=== PATIENT | female | born 1980 | race African-American/Black ===

== ENCOUNTER 2021-12-12 09:18 | Emergency (ER) | payer OTHER | END 2021-12-12 11:00 | disposition home or self-care (01) | LOC: CSHERS 09:18 | DX: S92.341A Displaced fracture of fourth metatarsal bone, right foot, initial encounter for closed fracture (principal); W20.8XXA Other cause of strike by thrown, projected or falling object, initial encounter ==

== ENCOUNTER 2021-12-23 08:21 | Emergency (ER) | payer OTHER ==
[2021-12-23] MEDS ORDERED: Ketorolac Tromethamine 30 MG/ML VIAL ONE (08:42)
== END 2021-12-23 09:07 | disposition home or self-care (01) ==
LOC: CSHERS 08:21
DX: R07.89 Other chest pain (principal); D50.9 Iron deficiency anemia, unspecified
CPT/HCPCS: 96372; 99283; J1885

== ENCOUNTER 2022-09-24 10:21 | Emergency (ER) | payer OTHER ==
[2022-09-24 11:22] LABS: Hemoglobin 9.1 g/dL (12.0-15.5); Mean Corpuscular HGB CONC 31.3 g/dL (32.0-36.0); Mean Corpuscular Hemoglobin 26.1 pg (27.0-33.0); Mean Corpuscular Volume 83.4 fl (81.6-98.3); Mean Platelet Volume 9.6 fl (7.4-10.4); Platelet Count 181 10x3/uL (150-450); RBC Distribution Width 18.5 % (11.5-14.5); Red Blood Cell (RBC) Count 3.49 10x6/uL (3.90-5.03); White Blood Cell (WBC) Count 2.9 10x3/uL (3.5-10.5)
[2022-09-24 11:27] LABS: MDiff Complete? YES
[2022-09-24 11:39] LABS: ALT (SGPT) Less than 7 U/L (8-55); AST (SGOT) 60 U/L (5-34); Albumin 3.3 g/dL (3.5-5.0); Alkaline Phosphatase 100 U/L (40-110); Anion Gap 15 mmol/L (10-20); BUN (Urea Nitrogen) 5 mg/dL (7.0-18.7); Calc. Creatinine Clearance 0 mL/min (70-130); Calcium 8.6 mg/dL (7.8-10.44); Carbon Dioxide 26 mmol/L (22-29); Chloride 99 mmol/L (98-107); Estimated GFR 110; Globulin 4.6 g/dL (2.4-3.5); Glucose 88 mg/dL (70-105); Potassium 3.2 mmol/L (3.5-5.1); Protein, Total 7.9 g/dL (6.0-8.3); Sodium 137 mmol/L (136-145)
[2022-09-24 11:50] LABS: Eosinophils 12 % (0-10); Lymphocytes 35 % (21-51); Monocytes 8 % (0-10); Neutrophil 45 % (42-75); Platelet Adequacy Comment Appears Adequate
[2022-09-24 11:51] LABS: RBC Morph Comment Within Normal Limits
== END 2022-09-24 12:13 | disposition home or self-care (01) ==
LOC: CSHERS 10:21
DX: R60.0 Localized edema (principal)
CPT/HCPCS: 36415; 80053; 83880; 84484; 85025; 99284